=== PATIENT | male | born 1980 | race Caucasian/White ===

== ENCOUNTER 2024-07-22 11:41 | Observation (INO) | payer MEDICARE ==
[~2024-07-22] VITALS: Ht 162.6 cm; Wt 86.3 kg
[2024-07-22] MEDS ORDERED: TICA60TA PO (12:23)
[2024-07-22] MEDS ORDERED: ACET-2743 PO (12:23)
[2024-07-22] MEDS ORDERED: CARV25TA PO (12:23)
[2024-07-22] MEDS ORDERED: ESCI-8 PO (12:23)
[2024-07-22] MEDS ORDERED: LORA10TA7 PO (12:23)
[2024-07-22 12:43] LABS: BASOPHILS # (AUTO) 0.03 K/uL (0.00-0.20); BASOPHILS % (AUTO) 0.5 % (0.0-5.0); EOSINOPHILS # (AUTO) 0.22 K/uL (0.00-0.70); EOSINOPHILS % (AUTO) 3.5 % (0.0-8.0); HEMATOCRIT 39.6 % (42-54); IMMATURE GRANULOCYTE ABSOLUTE 0.02 K/uL (0-1); LYMPHOCYTES # (AUTO) 0.8 K/uL (1.0-4.8); LYMPHOCYTES % (AUTO) 12.9 % (21.0-51.0); MEAN CORPUSCULAR HEMOGLOBIN 23.9 pg (27.0-33.0); MEAN CORPUSCULAR HGB CONC 30.8 g/dL (32.0-36.0); MEAN CORPUSCULAR VOLUME 77.5 fL (79-99); MONOCYTES # (AUTO) 0.4 K/uL (0.1-1.0); NEUTROPHILS # (AUTO) 4.8 K/uL (1.8-7.7); NEUTROPHILS % (AUTO) 76.8 % (40.0-77.0); PLATELET COUNT (AUTO) 228 K/uL (130-400); RED BLOOD CELL COUNT(AUTO) 5.11 MIL/uL (4.50-6.20); RED CELL DISTRIBUTION WIDTH 16.3 % (11.0-15.5); WHITE BLOOD COUNT (AUTO) 6.2 K/uL (4.8-10.8)
[2024-07-22 12:50] LABS: CREATININE 0.9 mg/dL (0.5-1.3); POTASSIUM 4.3 mmol/L (3.5-5.1)
[2024-07-22 12:52] LABS: INR 0.98 (0.85-1.15); PROTHROMBIN TIME 10.6 SEC (9.6-11.6)
[2024-07-22 12:53] LABS: PARTIAL THROMBOPLASTIN TIME 30.3 SEC (26.3-35.5)
[2024-07-22] MEDS ORDERED: albuterol IH (13:23)
[2024-07-22 13:30] VITALS: BP 126/72; PULSE 76; RESP 16; TEMP 96.9
[2024-07-22] MEDS ORDERED: NITROGLYCERIN 50MG VIAL ONE (17:26)
[2024-07-22] MEDS ORDERED: HEParin-NS 1,000 UNIT/500 ML 1,000 ML IV ONE (17:26)
[2024-07-22] MEDS ORDERED: IOHEXOL 350 MG/ML 100ML INFUS..BTL IV ONE (17:26)
[2024-07-22] MEDS ORDERED: HEParin 10,000 UNIT/10ML (1,000 UNIT/ML) VIAL ONE (17:26)
[2024-07-22] MEDS ORDERED: LIDOCAINE HCL 400MG/20ML VIAL ONE (17:26)
[2024-07-22] MEDS ORDERED: VERAPAMIL HCL 2.5 MG/ML VIAL ONE (17:27)
[2024-07-22] MEDS ORDERED: MIDAZOLAM HCL 1 MG/ML 2ML VIAL ONE (17:53)
[2024-07-22] MEDS ORDERED: FENTanyl CITRate PF 50 MCG/1 ML 2ML VIAL ONE (17:53)
[2024-07-22] MEDS ORDERED: IOHEXOL-350 50ML VIAL IV ONE (18:28)
[2024-07-22] MEDS ORDERED: DEXTROSE 50%-WATER 50 ML DISP.SYRIN IV PRN (19:00)
[2024-07-22] MEDS ORDERED: GLUCAGON 1MG KIT 1 MG ML IM PRN (19:00)
[2024-07-22] MEDS ORDERED: 0.9%NACL 1000ML 1,000 ML IV SCH (19:00)
== END 2024-07-22 20:35 | disposition home or self-care (01) ==
LOC: DAH 11:41 → UNDOADMOB 18:39 → DAHIP 18:39 → DAH 18:39 → DAHIP 20:35
PROVIDERS: ADMIT Internal Medicine Interventional Cardiology; ATTEND Internal Medicine Interventional Cardiology
DX: I25.10 Atherosclerotic heart disease of native coronary artery without angina pectoris (principal); Z79.899 Other long term (current) drug therapy; Z95.5 Presence of coronary angioplasty implant and graft
CPT/HCPCS: 93458; 80048; 85025; 85610; 85730; 36415; 71045; 93005; C1769; C1894; A4649; Q9965 ×2; G0378 ×2; J3010; J3490 ×3; J1644 ×2; J2250; Q9967 ×2; 99156; 99157